=== PATIENT | male | born 1990 | race African-American/Black ===

== ENCOUNTER 2018-02-28 09:44 | Emergency (ER) | payer SELFPAY ==
[~2018-02-28] VITALS: Ht 182.9 cm; Wt 86.0 kg
[2018-02-28 09:58] VITALS: BP 132/81
[2018-02-28] MEDS ORDERED: SILVER SULFADIAZINE 1% CREAM 25GM TOP ONE (10:45)
== END 2018-02-28 11:34 | disposition home or self-care (01) ==
LOC: ER 11:07
DX: T23.022A Burn of unspecified degree of single left finger (nail) except thumb, initial encounter (principal); X04.XXXA Exposure to ignition of highly flammable material, initial encounter; Y93.89 Activity, other specified; Y92.9 Unspecified place or not applicable
CPT/HCPCS: 16020; 99284

== ENCOUNTER 2018-07-17 13:02 | Emergency (ER) | payer SELFPAY ==
[~2018-07-17] VITALS: Ht 182.9 cm; Wt 88.0 kg
[2018-07-17 13:25] VITALS: BP 119/78
== END 2018-07-17 15:32 | disposition home or self-care (01) ==
LOC: ER 13:02
DX: L72.3 Sebaceous cyst (principal); L30.1 Dyshidrosis [pompholyx]
CPT/HCPCS: 99282